=== PATIENT | male | born 1965 | race Caucasian/White ===

== ENCOUNTER 2018-05-06 14:12 | Emergency (ER) | payer SELFPAY ==
--- NOTE | 2018-05-06 14:47 | RAD REPORT ---
EXAM DESCRIPTION: CT - Head Brain Wo Cont - 05/06/2018 2:40 pm CLINICAL HISTORY: weakness, AMS Headache, drowsiness. COMPARISON: CT-STROKE BRAIN W/O CONTRAST dated 04/04/2015 TECHNIQUE: All CT scans are performed using dose optimization technique as appropriate and may inclu de automated exposure control or mA/KV adjustment according to patient size. FINDINGS: No intracranial hemorrhage, hydrocephalus or extra-axial fluid collection.No areas of brai n edema or evidence of midline shift. Mild mucosal thickening is seen in the left maxillary antrum. The paranasal sinuses and mastoids are otherwise clear. The calvarium is intact. IMPRESSION: No acute intracranial abnormality.
[2018-05-06] MEDS ORDERED: NA CHLORIDE 0.9% 1,000 ML ONE (14:57)
--- NOTE | 2018-05-06 15:23 | RAD REPORT ---
EXAM DESCRIPTION: [facility] Single View05/06/2018 3:15 pm CLINICAL HISTORY: Chest pain COMPARISON: 2016 FINDINGS: The patient is in a poor degree of inspiration. The lungs appear clear of acute infiltrate. The heart is normal size
[2018-05-06 15:36] LABS: Absolute Lymphocytes (CBC) 1.9 K/uL (0.7-4.9); Absolute Monocytes 0.4 K/uL (0.1-1.3); Basophils % 0.3 % (0-1.3); Eosinophils % 0.8 % (0-4.4); Hematocrit 40.7 % (39.6-49.0); Lymphocytes % 34.7 % (15.3-44.8); MPV 9.4 fL (7.6-11.3); Monocytes % 7.8 % (3.3-12.3); RBC Red Blood Cell Count 4.21 M/uL (4.33-5.43)
[2018-05-06 15:58] LABS: BUN Blood Urea Nitrogen 17 mg/dL (7-18); Bicarbonate 25 mmol/L (21-32); Creatine Phosphokinase 73 U/L (39-308); Glucose Level 90 mg/dL (74-106); Magnesium 2.1 mg/dL (1.8-2.4); Sodium Level 139 mmol/L (136-145); Troponin (Emerg Dept Use Only) < 0.02 ng/mL (0.0-0.045)
[2018-05-06 16:22] LABS: Urine Blood NEGATIVE (NEG); Urine Glucose NEGATIVE (NEG); Urine Protein NEGATIVE (NEG); Urine pH 5.5 (5.0-7.0)
[2018-05-06 16:32] LABS: Barbiturates NEGATIVE (NEGATIVE); Benzodiazepines NEGATIVE (NEGATIVE); Cocaine NEGATIVE (NEGATIVE); METHAMPHETAM NEGATIVE (NEGATIVE); Methadone NEGATIVE (NEGATIVE); Opiates POSITIVE (NEGATIVE); Phencyclidine NEGATIVE (NEGATIVE); THC Cannibis NEGATIVE (NEGATIVE)
--- NOTE | 2018-05-06 16:37 | ER ---
Nurse's Notes [facility] Name: Trevin Hernandez Age: 52 yrs Sex: Male : 1965 Arrival Date: 05/06/2018 Time: 14:17 Bed 7 Private MD: Diagnosis: Dehydration;Weakness Presentation: 05/06 14:19 Presenting complaint: EMS states: Coworkers called EMS for patient having slurred aj speech and having difficulty climbing stairs today. reported to EMS that patient has had slurred speech for "a few days" along with unsteady gait. Transition of care: patient was not received from another setting of care. Onset of symptoms is unknown. Risk Assessment: Do you want to hurt yourself or someone else? Patient reports no desire to harm self or others. Initial Sepsis Screen: Does the patient meet any 2 criteria? No. Patient's initial sepsis screen is negative. Does the patient have a suspected source of infection? No. Patient's initial sepsis screen is negative. Care prior to arrival: IV initiated. 20 GA, in the left antecubital area, Glucose check: 100. 14:19 Method Of Arrival: EMS: [facility] 14:19 Acuity: BISHNU 2 aj Triage Assessment: 14:22 General: Appears in no apparent distress. comfortable, Behavior is calm, cooperative, aj drowsy. Pain: Denies pain. Neuro: Level of Consciousness is awake, alert, obeys commands, Oriented to person, place, time, situation, Appropriate for age Hand Woodworking Sander are equal bilaterally Moves all extremities. Full function Gait is steady, Speech is normal, Facial symmetry appears normal. Respiratory: Airway is patent Respiratory effort is even, unlabored, Respiratory pattern is regular, symmetrical. Derm: Skin is intact, is healthy with good turgor, Skin is dry, Skin is flushed, Skin temperature is warm. Historical: - Allergies: 14:22 No Known Allergies; aj - Home Meds: 14:22 None [Active]; aj - PMHx: 14:22 None; aj - PSHx: 14:22 None; aj - Immunization history:: Adult Immunizations up to date. - Social history:: Smoking status: Patient uses tobacco products, chewing tobacco. - Ebola Screening: : Patient negative for fever greater than or equal to 101.5 degrees Fahrenheit, and additional compatible Ebola Virus Disease symptoms Patient denies exposure to infectious person Patient denies travel to an Ebola-affected area in the 21 days before illness onset No symptoms or risks identified at this time. - Family history:: not pertinent. - Hospitalizations: : No recent hospitalization is reported. Screenin:27 Abuse screen: Denies threats or abuse. Denies injuries from another. Nutritional aj screening: No deficits noted. Tuberculosis screening: No symptoms or risk factors identified. Fall Risk None identified. Assessment: 16:28 Reassessment: Patient appears in no apparent distress at this time. No changes from aj previously documented assessment. Patient and/or family updated on plan of care and expected duration. Pain level reassessed. Patient is alert, oriented x 3, equal unlabored respirations, skin warm/dry/pink. Patient denies pain at this time. 16:57 Reassessment: Patient appears in no apparent distress at this time. No changes from aj previously documented assessment. Patient and/or family updated on plan of care and expected duration. Pain level reassessed. Patient is alert, oriented x 3, equal unlabored respirations, skin warm/dry/pink. Patient denies pain at this time. Patient states feeling better. Vital Signs: 14:22 BP 129 / 86; Pulse 96; Resp 20; Temp 98.8(O); Pulse Ox 95% on R/A; Weight 120.2 kg; aj Height 5 ft. 11 in. (180.34 cm); 16:30 BP 137 / 85; Pulse 68; Resp 19; Pulse Ox 98% on R/A; aj 14:22 Body Mass Index 36.96 (120.20 kg, 180.34 cm) ED Course: 14:17 Patient arrived in ED. rn 14:17 Kuldeep Wisdom MD is Attending Physician. rn 14:18 Melinda Prater, VAL is Primary Nurse. aj 14:22 Triage completed. aj 14:22 Arm band placed on left wrist. Patient placed in an exam room, on a stretcher, on aj night monitor, on pulse oximetry. 14:26 Maintain EMS IV. Dressing intact. Good blood return noted. Site clean \\T\\ dry. Gauge \\T\\ aj site: 20 to right AC. 14:27 Patient has correct armband on for positive identification. Bed in low position. Side aj rails up X 1. laboratory monitor on. Pulse ox on. NIBP on. 14:40 EKG done, by production technician. reviewed by Kuldeep Wisdom MD. at1 14:41 CT Head Brain wo Cont In Process Unspecified. EDMS 15:12 X-ray completed. Portable x-ray completed in exam room. Patient tolerated procedure kp1 well. 15:14 XRAY Chest (1 view) In Process Unspecified. EDMS 16:57 No provider procedures requiring assistance completed. IV discontinued, intact, aj bleeding controlled, No redness/swelling at site. Pressure dressing applied. Administered Medications: 15:07 Drug: NS 0.9% 1000 ml Route: IV; Rate: 1000 ml; Site: left antecubital; aj 16:59 Follow up: Response: No adverse reaction; IV Status: Completed infusion; IV Intake: aj 1000ml Intake: 16:59 IV: 1000ml; Total: 1000ml. aj Outcome: 16:37 Discharge ordered by . rn 16:57 Discharged to home ambulatory. aj 16:57 Condition: good 16:57 Discharge instructions given to patient, Instructed on discharge instructions, follow up and referral plans. Demonstrated understanding of instructions, follow-up care, medications. 17:00 Patient left the ED. aj Signatures: Dispatcher [employer] EDMS Melinda Prater, RN Kuldeep Waters MD MD rn Melinda Meléndez, precast worker EKG Tat1 Bonnie Smith kp1
--- NOTE | 2018-05-06 16:38 | EDPHYS ---
Physician Documentation [facility] Name: Trevin Hernandez Age: 52 yrs Sex: Male : 1965 Arrival Date: 05/06/2018 Time: 14:17 Bed 7 Private MD: ED Physician Kuldeep Wisdom HPI: 05/06 14:34 This 52 yrs old Male presents to ER via EMS with complaints of AMS. rn 14:34 Onset: The symptoms/episode began/occurred 2 day(s) ago. Possible causes: unknown. rn Current symptoms: In the emergency department the patient's symptoms have improved. The patient has experienced a previous episode. Per EMS, co-workers noticed that his knee gave out while walking, + generalized weakness, reports feeling weak for 2-3 days, feels better now, has happened before and diagnosed with dehydration. No new meds. Bystanders reported slurred speech that has improved. Patient denies symptoms or focal neurological complaints. . Historical: - Allergies: 14:22 No Known Allergies; aj - Home Meds: 14:22 None [Active]; aj - PMHx: 14:22 None; aj - PSHx: 14:22 None; aj - Immunization history:: Adult Immunizations up to date. - Social history:: Smoking status: Patient uses tobacco products, chewing tobacco. - Ebola Screening: : Patient negative for fever greater than or equal to 101.5 degrees Fahrenheit, and additional compatible Ebola Virus Disease symptoms Patient denies exposure to infectious person Patient denies travel to an Ebola-affected area in the 21 days before illness onset No symptoms or risks identified at this time. - Family history:: not pertinent. - Hospitalizations: : No recent hospitalization is reported. ROS: 14:34 Constitutional: Negative for fever, chills, and weight loss, Eyes: Negative for injury, rn pain, redness, and discharge, Neck: Negative for injury, pain, and swelling, Cardiovascular: Negative for chest pain, palpitations, and edema, Respiratory: Negative for shortness of breath, cough, wheezing, and pleuritic chest pain, Abdomen/GI: Negative for abdominal pain, nausea, vomiting, diarrhea, and constipation, MS/Extremity: Negative for injury and deformity, Skin: Negative for injury, rash, and discoloration, Neuro: Negative for headache, numbness, tingling, and seizure. Exam: 14:34 Constitutional: This is a well developed, well nourished patient who is awake, appears rn sleepy/somnolent Head/Face: Normocephalic, atraumatic. Eyes: Pupils equal round and reactive to light, extra-ocular motions intact. Lids and lashes normal. Conjunctiva and sclera are non-icteric and not injected. Cornea within normal limits. Periorbital areas with no swelling, redness, or edema. ENT: dry MM with chewing tobacco in mouth Cardiovascular: Regular rate and rhythm with a normal S1 and S2. No gallops, murmurs, or rubs. No JVD. No pulse deficits. Respiratory: Lungs have equal breath sounds bilaterally, clear to auscultation. No increased work of breathing, no retractions or nasal flaring. Abdomen/GI: Soft, non-tender, No evidence of tenderness throughout. MS/ Extremity: Pulses equal, no cyanosis. Neurovascular intact. Full, normal range of motion. Equal circumference. Neuro: Awake, somnolent, GCS 15, oriented to person, place, time, and situation. Cranial nerves II-XII grossly intact. Motor strength 5/5 in all extremities. Sensory grossly intact. Cerebellar exam normal. Vital Signs: 14:22 BP 129 / 86; Pulse 96; Resp 20; Temp 98.8(O); Pulse Ox 95% on R/A; Weight 120.2 kg; aj Height 5 ft. 11 in. (180.34 cm); 16:30 BP 137 / 85; Pulse 68; Resp 19; Pulse Ox 98% on R/A; aj 14:22 Body Mass Index 36.96 (120.20 kg, 180.34 cm) aj MDM: 14:17 Patient medically screened. rn 16:36 Differential Diagnosis: electrolyte abnormality, hypoglycemia, overdose, sepsis, UTI, rn volume depletion. Data reviewed: vital signs, nurses notes, lab test result(s), EKG, radiologic studies, CT scan, and as a result, I will discharge patient. Counseling: I had a detailed discussion with the patient and/or guardian regarding: the historical points, exam findings, and any diagnostic results supporting the discharge/admit diagnosis, lab results, radiology results, the need for outpatient follow up, to return to the emergency department if symptoms worsen or persist or if there are any questions or concerns that arise at home. Response to treatment: the patient's symptoms have markedly improved after treatment, the patient's condition has returned to base line, the patient is now symptom free, patient is well hydrated. and as a result, I will discharge patient. Special discussion: I discussed with the patient/guardian in detail that at this point there is no indication for admission to the hospital. It is understood, however, that if the symptoms persist or worsen the patient needs to return immediately for re-evaluation. 05/06 14:18 Order name: UDS; Complete Time: 16:35 rn 05/06 14:18 Order name: Basic Metabolic Panel; Complete Time: 16:28 rn 05/06 14:18 Order name: CBC with Diff; Complete Time: 16:28 rn 05/06 14:18 Order name: CPK; Complete Time: 16:28 rn 05/06 14:18 Order name: Magnesium; Complete Time: 16:28 rn 05/06 14:18 Order name: Troponin (emerg Dept Use Only); Complete Time: 16:28 rn 05/06 14:18 Order name: CT Head Brain wo Cont; Complete Time: 15:31 rn 05/06 14:18 Order name: EKG; Complete Time: 14:19 rn 05/06 14:18 Order name: Cardiac monitoring; Complete Time: 15:07 rn 05/06 14:18 Order name: EKG - Nurse/Tech; Complete Time: 15:07 rn 05/06 14:18 Order name: Procalcitonin rn 05/06 14:18 Order name: XRAY Chest (1 view); Complete Time: 15:31 rn 05/06 16:06 Order name: Urine Dipstick--Ancillary (enter results) bd 05/06 14:18 Order name: IV Saline Lock; Complete Time: 15:08 rn 05/06 14:18 Order name: Labs collected and sent; Complete Time: 15: rn 05/06 14:18 Order name: NPO; Complete Time: 15: rn 05/06 14:18 Order name: O2 Per Protocol; Complete Time: 15: rn 05/06 14:18 Order name: O2 Sat Monitoring; Complete Time: 15:09 rn Administered Medications: 15:07 Drug: NS 0.9% 1000 ml Route: IV; Rate: 1000 ml; Site: left antecubital; aj 16:59 Follow up: Response: No adverse reaction; IV Status: Completed infusion; IV Intake: aj 1000ml Disposition: 05/06/18 16:37 Discharged to Home. Impression: Dehydration, Weakness. - Condition is Stable. - Discharge Instructions: Dehydration, Adult, Weakness. - Medication Reconciliation Form, Thank You Letter, Antibiotic Education, Prescription Opioid Use form. - Follow up: Private Physician; When: As needed; Reason: Recheck today's complaints, Re-evaluation by your physician. - Problem is new. - Symptoms have improved. Signatures: Dispatcher [employer] EDMelinda Tomlinson RN RN Kuldeep Shrestha MD MD glass furnace tender: (The following items were deleted from the chart) 17:00 16:37 05/06/2018 16:37 Discharged to Home. Impression: Dehydration; Weakness. Condition aj is Stable. Forms are Medication Reconciliation Form, Thank You Letter, Antibiotic Education, Prescription Opioid Use. Follow up: Private Physician; When: As needed; Reason: Recheck today's complaints, Re-evaluation by your physician. Problem is new. Symptoms have improved. rn
--- NOTE | 2018-05-06 17:12 | EKG ---
Test Date: 2018-04-05 Test Time: 14:28:47 Manager Front: AG/S MEASUREMENT RESULTS: Intervals: Rate: 90 MN: 152 QRSD: 82 QT: 362 QTc: 442 [place]: P: 39 MN: 152 QRS: 116 T: -17 INTERPRETIVE STATEMENTS: Normal sinus rhythm Left posterior fascicular block Minimal voltage criteria for LVH, may be normal variant Possible Inferior infarct, age undetermined Abnormal ECG Compared to ECG 04/04/2015 10:21:37 Left posterior fascicular block now present Left ventricular hypertrophy now present Myocardial infarct finding now present Electronically Signed On 05-06-18 17:11:28 COMBINE INSPECTOR by Matti Vogt
== END 2018-05-06 17:00 | disposition home or self-care (01) ==
LOC: ER 14:12
DX: E86.0 Dehydration (principal); Z72.0 Tobacco use
CPT/HCPCS: 36415; 70450; 71045; 80048; 80307; 81003; 82550; 83735; 84145; 84484; 85025; 93005; 96360; 96361; 99284; J7030